=== PATIENT | female | born 1980 | race Caucasian/White ===

== ENCOUNTER 2016-12-04 13:55 | Emergency (ER) | payer OTHER | END 2016-12-04 14:40 | disposition home or self-care (01) | LOC: ER1 13:55 | DX: S09.90XA Unspecified injury of head, initial encounter (principal); K02.9 Dental caries, unspecified; J06.9 Acute upper respiratory infection, unspecified; F17.210 Nicotine dependence, cigarettes, uncomplicated; B19.20 Unspecified viral hepatitis C without hepatic coma; Z88.2 Allergy status to sulfonamides; W22.8XXA Striking against or struck by other objects, initial encounter | CPT/HCPCS: 99282 ==